=== PATIENT | male | born 1935 | race African-American/Black ===

== ENCOUNTER 2021-01-31 09:34 | Emergency (ER) | payer MEDICARE ==
[2021-01-31] MEDS ORDERED: traMADol HCl 50 MG TAB ONE (10:48)
[2021-01-31 10:55] LABS: #Eosinphils 0.2 thou/uL (0.0-0.7); #Lymphocytes 1.5 thou/uL (1.20-3.40); #Monocytes 0.4 thou/uL (0.11-0.59); #Neutrophils 4.2 thou/uL (1.40-6.50); %Basophils 0.1 % (0.0-1.0); %Eosinophils 3.4 % (0.0-10.0); %Lymphocytes 23.2 % (21.0-51.0); %Monocytes 6.2 % (0.0-10.0); %Neutrophils 67.1 % (42.0-75.0); Hemoglobin 13.4 g/dL (14.0-18.0); Mean Corpuscular HGB CONC 33.3 g/dL (32.0-36.0); Mean Corpuscular Volume 87.3 fL (78.0-98.0); Mean Platelet Volume 7.6 fL (7.4-10.4); Platelet Count 134 thou/uL (130-400); RBC Distribution Width 13.6 % (11.5-14.5); White Blood Cell (WBC) Count 6.3 thou/uL (4.8-10.8)
[2021-01-31 11:18] LABS: ALT (SGPT) 11 U/L (8-55); AST (SGOT) 17 U/L (5-34); Albumin 4.1 g/dL (3.4-4.8); Alkaline Phosphatase 82 U/L (40-110); Anion Gap 12 mmol/L (10-20); BUN (Urea Nitrogen) 23 mg/dL (8.4-25.7); Bilirubin, Total 0.8 mg/dL (0.2-1.2); Calc. Creatinine Clearance 0 mL/min (70-130); Calcium 9.9 mg/dL (7.8-10.44); Carbon Dioxide 24 mmol/L (23-31); Chloride 108 mmol/L (98-107); Globulin 3.6 g/dL (2.4-3.5); Glucose 135 mg/dL (83-110); Potassium 4.2 mmol/L (3.5-5.1); Protein, Total 7.7 g/dL (5.8-8.1); Sodium 140 mmol/L (136-145)
[2021-01-31 11:37] LABS: Bilirubin Negative (Negative); Blood, Urine Negative (Negative); Clarity Clear (Clear); Glucose, Urine (Dipstick) Normal (Negative); Ketone, Urine Negative (Negative); Leukocyte Negative Leu/uL (Negative); Nitrite Negative (Negative); Protein, Urine (Dipstick) 10 mg/dL (Neg-Trace); Specific Gravity, Urine 1.013 (1.002-1.036); Urobilinogen Normal mg/dL (Less than 2)
== END 2021-01-31 12:00 | disposition home or self-care (01) ==
LOC: ERS 09:34
DX: M62.830 Muscle spasm of back (principal); E11.9 Type 2 diabetes mellitus without complications; I10 Essential (primary) hypertension; E78.00 Pure hypercholesterolemia, unspecified
CPT/HCPCS: 36415; 74176; 80053; 81003; 85025

== ENCOUNTER 2021-06-13 03:10 | Emergency (ER) | payer MEDICARE ==
[2021-06-13 04:20] LABS: ALT (SGPT) 15 U/L (8-55); AST (SGOT) 30 U/L (5-34); Albumin 3.7 g/dL (3.4-4.8); Alkaline Phosphatase 118 U/L (40-110); Anion Gap 13 mmol/L (10-20); BUN (Urea Nitrogen) 45 mg/dL (8.4-25.7); Calc. Creatinine Clearance 0 mL/min (70-130); Calcium 8.9 mg/dL (7.8-10.44); Carbon Dioxide 22 mmol/L (23-31); Chloride 104 mmol/L (98-107); Globulin 3.3 g/dL (2.4-3.5); Glucose 100 mg/dL (83-110); Magnesium 2.1 mg/dL (1.6-2.6); Potassium 3.9 mmol/L (3.5-5.1); Sodium 135 mmol/L (136-145)
[2021-06-13 04:26] LABS: #Eosinphils 0.1 thou/uL (0.0-0.7); #Monocytes 0.5 thou/uL (0.11-0.59); #Neutrophils 4.4 thou/uL (1.40-6.50); %Basophils 0.6 % (0.0-1.0); %Eosinophils 1.8 % (0.0-10.0); %Lymphocytes 16.5 % (21.0-51.0); %Monocytes 7.8 % (0.0-10.0); %Neutrophils 73.3 % (42.0-75.0); Anisocytosis SLIGHT = 6-15 cells (100X) (0-5/hpf); Hemoglobin 11.4 g/dL (14.0-18.0); MDiff Complete? YES; Mean Corpuscular HGB CONC 33.3 g/dL (32.0-36.0); Mean Corpuscular Hemoglobin 28.5 pg (27.0-31.0); Mean Corpuscular Volume 85.3 fL (78.0-98.0); Mean Platelet Volume 10.7 fL (7.4-10.4); Platelet Count 52 thou/uL (130-400); Platelet Morphology Comment Appears Decreased; RBC Distribution Width 15.2 % (11.5-14.5); Red Blood Cell (RBC) Count 4.01 mill/uL (4.70-6.10)
[2021-06-13 04:41] LABS: CKMB 1.5 ng/mL (0-6.6)
[2021-06-13] MEDS ORDERED: cefTRIAXone\\ROCEPHIN 2 GM VIAL ONE (07:56)
[2021-06-13] MEDS ORDERED: Azithromycin 500 MG VIAL ONE (08:44)
[2021-06-13] MEDS ORDERED: Iopamidol 370 76% 100 ML VIAL ONE (09:00)
== END 2021-06-13 09:17 | disposition short-term general hospital (02) ==
LOC: ERS 03:10
DX: I11.0 Hypertensive heart disease with heart failure (principal); I50.9 Heart failure, unspecified; E11.9 Type 2 diabetes mellitus without complications; Z79.899 Other long term (current) drug therapy; Z79.84 Long term (current) use of oral hypoglycemic drugs; R09.02 Hypoxemia; R79.89 Other specified abnormal findings of blood chemistry
CPT/HCPCS: 36415; 71045; 71275; 80053; 82553; 83605; 83735; 83880; 84484; 85025; 85379; 87040; 93005; 93970; 96365; 96375; J0456; J0696; Q9967

== ENCOUNTER 2021-08-12 17:48 | Inpatient (IN) | payer MEDICARE ==
[2021-08-12 18:47] LABS: #Eosinphils 0.2 thou/uL (0.0-0.7); #Lymphocytes 1.3 thou/uL (1.20-3.40); #Monocytes 0.5 thou/uL (0.11-0.59); #Neutrophils 3.1 thou/uL (1.40-6.50); %Basophils 0.2 % (0.0-1.0); %Eosinophils 4.7 % (0.0-10.0); %Lymphocytes 25.6 % (21.0-51.0); %Monocytes 9.7 % (0.0-10.0); %Neutrophils 59.8 % (42.0-75.0); Hemoglobin 11.9 g/dL (14.0-18.0); Mean Corpuscular HGB CONC 33.2 g/dL (32.0-36.0); Mean Corpuscular Hemoglobin 29.4 pg (27.0-31.0); Mean Corpuscular Volume 88.3 fL (78.0-98.0); Platelet Count 51 thou/uL (130-400); RBC Distribution Width 17.3 % (11.5-14.5); Red Blood Cell (RBC) Count 4.06 mill/uL (4.70-6.10); White Blood Cell (WBC) Count 5.2 thou/uL (4.8-10.8)
[2021-08-12] MEDS ORDERED: Morphine 4 MG/ML VIAL ONE (19:02)
[2021-08-12] MEDS ORDERED: Furosemide 40 MG/4 ML VIAL ONE ×2 (19:02→22:46)
[2021-08-12 19:04] LABS: ALT (SGPT) 14 U/L (8-55); AST (SGOT) 28 U/L (5-34); Albumin 3.2 g/dL (3.4-4.8); Alkaline Phosphatase 172 U/L (40-110); Anion Gap 15 mmol/L (10-20); BUN (Urea Nitrogen) 16 mg/dL (8.4-25.7); Bilirubin, Total 1.5 mg/dL (0.2-1.2); CK (CPK) 61 U/L (30-200); Calc. Creatinine Clearance 0 mL/min (70-130); Carbon Dioxide 25 mmol/L (23-31); Chloride 104 mmol/L (98-107); Globulin 3.6 g/dL (2.4-3.5); Glucose 131 mg/dL (83-110); Lipase 30 U/L (8-78); Potassium 3.6 mmol/L (3.5-5.1); Protein, Total 6.8 g/dL (5.8-8.1); Sodium 140 mmol/L (136-145)
[2021-08-12 19:25] LABS: CKMB 1.5 ng/mL (0-6.6)
[2021-08-12] MEDS ORDERED: Aspirin Chewable 81 MG TAB ONE (19:33)
[2021-08-12] MEDS ORDERED: Bisacodyl 10 MG SUPP PR PRN (21:14)
[2021-08-12] MEDS ORDERED: Acetaminophen 325 MG TAB PO PRN (21:14)
[2021-08-12] MEDS ORDERED: HYDROcodone/Acetaminophen 5/325 mg Tablet PO PRN (21:14)
[2021-08-12] MEDS ORDERED: Zolpidem Tartrate 5 MG TAB PO PRN (21:14)
[2021-08-12] MEDS ORDERED: Morphine 2 MG/ML VIAL SLOW IVP PRN (21:18)
[2021-08-12] MEDS ORDERED: hydrALAZINE 20 MG/ML VIAL SLOW IVP PRN (21:18)
[2021-08-12 22:06] LABS: Bilirubin Negative (Negative); Blood, Urine 1+ (Negative); Clarity Clear (Clear); Glucose, Urine (Dipstick) Normal (Negative); Ketone, Urine Negative (Negative); Leukocyte 75 Leu/uL (Negative); Nitrite Negative (Negative); Protein, Urine (Dipstick) Negative (Neg-Trace); Specific Gravity, Urine 1.008 (1.002-1.036); Squamous Epithelial 0-3 HPF (0-3); Urobilinogen Normal mg/dL (Less than 2)
[2021-08-12 22:08] LABS: Bacteria/HPF Rare-Few HPF (None Seen); Yeast-Budding 3+ HPF (None Seen)
[2021-08-12 22:14] LABS: Troponin I 0.045 ng/mL (< 0.028)
[2021-08-12] MEDS: Furosemide 40 MG/4 ML VIAL SLOW IVP SCH (22:48)
[2021-08-12 22:50] VITALS: BMI 31.8
[2021-08-12 23:47] LABS: Creatinine, Urine 37.77 mg/dL (63-166)
[2021-08-13 01:13] LABS: Troponin I 0.055 ng/mL (< 0.028)
[2021-08-13] MEDS ORDERED: HYDROcodone/Acetaminophen 5/325 mg Tablet ONE (03:04)
[2021-08-13] MEDS ORDERED: Morphine 2 MG/ML VIAL ONE ×2 (03:07→03:10)
[2021-08-13 05:28] LABS: #Eosinphils 0.3 thou/uL (0.0-0.7); #Lymphocytes 1.6 thou/uL (1.20-3.40); #Monocytes 0.5 thou/uL (0.11-0.59); #Neutrophils 2.5 thou/uL (1.40-6.50); %Basophils 0.4 % (0.0-1.0); %Eosinophils 6.5 % (0.0-10.0); %Lymphocytes 31.8 % (21.0-51.0); %Neutrophils 50.3 % (42.0-75.0); Hemoglobin 10.9 g/dL (14.0-18.0); Mean Corpuscular HGB CONC 31.5 g/dL (32.0-36.0); Mean Corpuscular Hemoglobin 27.9 pg (27.0-31.0); Mean Corpuscular Volume 88.5 fL (78.0-98.0); Mean Platelet Volume 8.6 fL (7.4-10.4); Platelet Count 30 thou/uL (130-400); RBC Distribution Width 16.9 % (11.5-14.5); Red Blood Cell (RBC) Count 3.91 mill/uL (4.70-6.10); White Blood Cell (WBC) Count 4.9 thou/uL (4.8-10.8)
[2021-08-13 05:44] LABS: ALT (SGPT) 13 U/L (8-55); AST (SGOT) 25 U/L (5-34); Albumin 2.9 g/dL (3.4-4.8); Alkaline Phosphatase 143 U/L (40-110); Anion Gap 15 mmol/L (10-20); BUN (Urea Nitrogen) 16 mg/dL (8.4-25.7); Bilirubin, Total 1.7 mg/dL (0.2-1.2); Calc. Creatinine Clearance 57 mL/min (70-130); Calcium 8.8 mg/dL (7.8-10.44); Carbon Dioxide 25 mmol/L (23-31); Chloride 105 mmol/L (98-107); Globulin 3.2 g/dL (2.4-3.5); Glucose 98 mg/dL (83-110); Potassium 3.4 mmol/L (3.5-5.1); Protein, Total 6.1 g/dL (5.8-8.1); Sodium 142 mmol/L (136-145)
[2021-08-13 05:47] LABS: Troponin I 0.048 ng/mL (< 0.028)
[2021-08-13] MEDS ORDERED: Furosemide 40 MG/4 ML VIAL ONE (06:01)
[2021-08-13] MEDS: Furosemide 40 MG/4 ML VIAL SLOW IVP SCH ×3 (06:10→21:12)
[2021-08-13] MEDS: Carvedilol 3.125 MG TAB PO SCH ×2 (08:59→17:09)
[2021-08-13] MEDS ORDERED: Spironolactone 100 MG TAB PO SCH (09:00)
[2021-08-13] MEDS ORDERED: Potassium Chloride 20 MEQ TAB PO SCH (09:00)
[2021-08-13 09:30] LABS: Magnesium 1.9 mg/dL (1.6-2.6)
[2021-08-13] MEDS ORDERED: Potassium Chloride 20 MEQ TAB ONE (09:52)
[2021-08-13] MEDS ORDERED: Famotidine 20 MG TAB ONE (09:52)
[2021-08-13] MEDS ORDERED: Clopidogrel Bisulfate 75 MG TAB ONE (09:52)
[2021-08-13] MEDS: Famotidine 20 MG TAB PO SCH (09:57)
[2021-08-13] MEDS: Amiodarone 200 MG TAB PO SCH (09:57)
[2021-08-13] MEDS: Clopidogrel Bisulfate 75 MG TAB PO SCH (09:57)
[2021-08-13] MEDS: Midodrine HCl 5 MG TAB PO SCH ×3 (09:58→21:12)
[2021-08-13] MEDS: Ferrous Sulfate 325 MG TAB PO SCH (09:58)
[2021-08-13] MEDS: Miconazole 2% Cream 30 GM TUBE TOP SCH ×3 (16:39→21:12)
[2021-08-13 17:00] LABS: Troponin I 0.048 ng/mL (< 0.028)
[2021-08-13] MEDS: Rosuvastatin 10 MG TAB PO SCH (21:11)
[2021-08-13] MEDS: Apixaban 2.5 MG TAB PO SCH (21:12)
[2021-08-13] MEDS ORDERED: Miconazole 2% Vaginal Cream 45 GM TUBE TOP SCH (21:45)
[2021-08-14 05:17] LABS: #Eosinphils 0.2 thou/uL (0.0-0.7); #Lymphocytes 1.6 thou/uL (1.20-3.40); #Monocytes 0.7 thou/uL (0.11-0.59); #Neutrophils 3.8 thou/uL (1.40-6.50); %Basophils 0.2 % (0.0-1.0); %Eosinophils 2.8 % (0.0-10.0); %Lymphocytes 25.2 % (21.0-51.0); %Monocytes 10.4 % (0.0-10.0); %Neutrophils 61.4 % (42.0-75.0); Hemoglobin 10.9 g/dL (14.0-18.0); Mean Corpuscular HGB CONC 31.8 g/dL (32.0-36.0); Mean Platelet Volume 16.8 fL (7.4-10.4); Platelet Count 24 thou/uL (130-400); RBC Distribution Width 16.7 % (11.5-14.5); Red Blood Cell (RBC) Count 3.91 mill/uL (4.70-6.10); White Blood Cell (WBC) Count 6.2 thou/uL (4.8-10.8)
[2021-08-14 05:39] LABS: ALT (SGPT) 11 U/L (8-55); AST (SGOT) 20 U/L (5-34); Albumin 2.8 g/dL (3.4-4.8); Alkaline Phosphatase 137 U/L (40-110); Anion Gap 12 mmol/L (10-20); BUN (Urea Nitrogen) 16 mg/dL (8.4-25.7); Bilirubin, Total 1.7 mg/dL (0.2-1.2); Calc. Creatinine Clearance 55 mL/min (70-130); Carbon Dioxide 27 mmol/L (23-31); Chloride 106 mmol/L (98-107); Globulin 3.2 g/dL (2.4-3.5); Glucose 103 mg/dL (83-110); Potassium 3.6 mmol/L (3.5-5.1); Sodium 141 mmol/L (136-145)
[2021-08-14] MEDS: Furosemide 40 MG/4 ML VIAL SLOW IVP SCH ×3 (05:45→21:42)
[2021-08-14] MEDS ORDERED: Potassium Chloride 20 MEQ TAB PO SCH (06:45)
[2021-08-14] MEDS: Apixaban 2.5 MG TAB PO SCH ×2 (08:34→08:44)
[2021-08-14] MEDS: Carvedilol 3.125 MG TAB PO SCH ×2 (08:34→17:29)
[2021-08-14] MEDS: Midodrine HCl 5 MG TAB PO SCH ×3 (08:34→21:43)
[2021-08-14] MEDS: Famotidine 20 MG TAB PO SCH (08:34)
[2021-08-14] MEDS: Ferrous Sulfate 325 MG TAB PO SCH (08:34)
[2021-08-14] MEDS: Spironolactone 100 MG TAB PO SCH (08:34)
[2021-08-14] MEDS: Clopidogrel Bisulfate 75 MG TAB PO SCH ×2 (08:35→08:44)
[2021-08-14] MEDS: Amiodarone 200 MG TAB PO SCH (08:35)
[2021-08-14] MEDS: Miconazole 2% Vaginal Cream 45 GM TUBE TOP SCH ×2 (11:12→21:44)
[2021-08-14 12:11] LABS: Iron 26 ug/dL (65-175); Iron Binding Capacity, Total 241 mcg/dL (261-462)
[2021-08-14] MEDS: Rosuvastatin 10 MG TAB PO SCH (21:42)
[2021-08-15] MEDS ORDERED: Oxymetazoline HCl 0.05% (30 ML BOT) NS SCH (04:00)
[2021-08-15] MEDS: Furosemide 40 MG/4 ML VIAL SLOW IVP SCH ×3 (06:12→20:40)
[2021-08-15 06:17] LABS: #Eosinphils 0.1 thou/uL (0.0-0.7); #Lymphocytes 1.6 thou/uL (1.20-3.40); #Monocytes 0.5 thou/uL (0.11-0.59); #Neutrophils 3.2 thou/uL (1.40-6.50); %Basophils 0.1 % (0.0-1.0); %Eosinophils 2.6 % (0.0-10.0); %Lymphocytes 29.9 % (21.0-51.0); %Monocytes 9.4 % (0.0-10.0); Mean Corpuscular HGB CONC 31.1 g/dL (32.0-36.0); Mean Corpuscular Hemoglobin 27.4 pg (27.0-31.0); Platelet Count 24 thou/uL (130-400); RBC Distribution Width 16.7 % (11.5-14.5); Red Blood Cell (RBC) Count 4.01 mill/uL (4.70-6.10); White Blood Cell (WBC) Count 5.5 thou/uL (4.8-10.8)
[2021-08-15 06:43] LABS: ALT (SGPT) 8 U/L (8-55); AST (SGOT) 19 U/L (5-34); Albumin 2.8 g/dL (3.4-4.8); Alkaline Phosphatase 139 U/L (40-110); Anion Gap 13 mmol/L (10-20); BUN (Urea Nitrogen) 18 mg/dL (8.4-25.7); Bilirubin, Total 1.6 mg/dL (0.2-1.2); Calc. Creatinine Clearance 52 mL/min (70-130); Calcium 8.9 mg/dL (7.8-10.44); Carbon Dioxide 29 mmol/L (23-31); Chloride 103 mmol/L (98-107); Estimated GFR 46; Globulin 3.3 g/dL (2.4-3.5); Glucose 119 mg/dL (83-110); Potassium 3.7 mmol/L (3.5-5.1); Protein, Total 6.1 g/dL (5.8-8.1); Sodium 141 mmol/L (136-145)
[2021-08-15] MEDS: Clopidogrel Bisulfate 75 MG TAB PO SCH (07:53)
[2021-08-15] MEDS: Iron, Sodium Ferric Gluconate 250 MG in Sodium Chloride 0.9% 250 ML 250 ML IVPB SCH (09:59)
[2021-08-15] MEDS: Amiodarone 200 MG TAB PO SCH (10:39)
[2021-08-15] MEDS: Carvedilol 3.125 MG TAB PO SCH ×2 (10:39→16:42)
[2021-08-15] MEDS: Spironolactone 100 MG TAB PO SCH (10:39)
[2021-08-15] MEDS: Famotidine 20 MG TAB PO SCH (10:39)
[2021-08-15] MEDS: Ferrous Sulfate 325 MG TAB PO SCH (10:39)
[2021-08-15] MEDS: Miconazole 2% Vaginal Cream 45 GM TUBE TOP SCH ×2 (10:40→20:40)
[2021-08-15] MEDS: Midodrine HCl 5 MG TAB PO SCH ×3 (10:40→20:39)
[2021-08-15 11:23] LABS: INR-International Normal Ratio 1.3; Prothrombin Time 16.5 sec (12.0-14.7)
[2021-08-15] MEDS: Rosuvastatin 10 MG TAB PO SCH (20:39)
[2021-08-16] MEDS: Oxymetazoline HCl 0.05% (30 ML BOT) NS SCH ×2 (04:21→08:29)
[2021-08-16] MEDS: Furosemide 40 MG/4 ML VIAL SLOW IVP SCH ×2 (05:36→14:10)
[2021-08-16 08:14] LABS: Mean Corpuscular HGB CONC 31.9 g/dL (32.0-36.0); Mean Corpuscular Hemoglobin 27.9 pg (27.0-31.0); Mean Corpuscular Volume 87.4 fL (78.0-98.0); Mean Platelet Volume 8.8 fL (7.4-10.4); Platelet Count 44 thou/uL (130-400); RBC Distribution Width 16.7 % (11.5-14.5); Red Blood Cell (RBC) Count 3.96 mill/uL (4.70-6.10); White Blood Cell (WBC) Count 6.1 thou/uL (4.8-10.8)
[2021-08-16 08:16] LABS: Albumin 2.9 g/dL (3.4-4.8); Anion Gap 17 mmol/L (10-20); BUN (Urea Nitrogen) 18 mg/dL (8.4-25.7); BUN/Creatinine Ratio 12.86; Calc. Creatinine Clearance 54 mL/min (70-130); Calcium 8.9 mg/dL (7.8-10.44); Carbon Dioxide 27 mmol/L (23-31); Chloride 102 mmol/L (98-107); Estimated GFR 49; Glucose 124 mg/dL (83-110); Phosphorus 2.9 mg/dL (2.3-4.7); Potassium 3.7 mmol/L (3.5-5.1); Sodium 142 mmol/L (136-145)
[2021-08-16] MEDS: Amiodarone 200 MG TAB PO SCH (08:33)
[2021-08-16] MEDS: Famotidine 20 MG TAB PO SCH (08:34)
[2021-08-16] MEDS: Carvedilol 3.125 MG TAB PO SCH ×2 (08:34→17:21)
[2021-08-16] MEDS: Clopidogrel Bisulfate 75 MG TAB PO SCH (08:34)
[2021-08-16] MEDS: Ferrous Sulfate 325 MG TAB PO SCH (08:34)
[2021-08-16] MEDS: Spironolactone 100 MG TAB PO SCH (08:35)
[2021-08-16] MEDS: Midodrine HCl 5 MG TAB PO SCH ×3 (08:35→21:25)
[2021-08-16] MEDS: Iron, Sodium Ferric Gluconate 250 MG in Sodium Chloride 0.9% 250 ML 250 ML IVPB SCH (08:36)
[2021-08-16] MEDS: Miconazole 2% Vaginal Cream 45 GM TUBE TOP SCH ×2 (09:58→21:26)
[2021-08-16] MEDS: Albumin 25% 25 GM/100 ML BOT IVPB SCH ×2 (11:13→17:21)
[2021-08-16] MEDS: Rosuvastatin 10 MG TAB PO SCH (21:25)
[2021-08-17 05:39] LABS: Hemoglobin 10.2 g/dL (14.0-18.0); Mean Corpuscular HGB CONC 32.3 g/dL (32.0-36.0); Mean Corpuscular Hemoglobin 28.4 pg (27.0-31.0); Mean Corpuscular Volume 87.9 fL (78.0-98.0); Platelet Count 34 thou/uL (130-400); RBC Distribution Width 16.7 % (11.5-14.5); Red Blood Cell (RBC) Count 3.59 mill/uL (4.70-6.10); White Blood Cell (WBC) Count 5.4 thou/uL (4.8-10.8)
[2021-08-17 05:46] LABS: Albumin 3.1 g/dL (3.4-4.8); Anion Gap 14 mmol/L (10-20); BUN (Urea Nitrogen) 18 mg/dL (8.4-25.7); Calc. Creatinine Clearance 53 mL/min (70-130); Calcium 8.7 mg/dL (7.8-10.44); Carbon Dioxide 29 mmol/L (23-31); Chloride 101 mmol/L (98-107); Estimated GFR 47; Glucose 133 mg/dL (83-110); Potassium 3.3 mmol/L (3.5-5.1); Sodium 141 mmol/L (136-145)
[2021-08-17] MEDS: Oxymetazoline HCl 0.05% (30 ML BOT) NS SCH ×3 (06:51→20:27)
[2021-08-17] MEDS: Furosemide 40 MG/4 ML VIAL SLOW IVP SCH (07:37)
[2021-08-17] MEDS ORDERED: Potassium Chloride 20 MEQ TAB PO SCH (08:15)
[2021-08-17] MEDS ORDERED: Furosemide 20 MG TAB PO SCH (09:00)
[2021-08-17] MEDS: Ferrous Sulfate 325 MG TAB PO SCH (09:22)
[2021-08-17] MEDS: Spironolactone 100 MG TAB PO SCH (09:23)
[2021-08-17] MEDS: Amiodarone 200 MG TAB PO SCH (09:23)
[2021-08-17] MEDS: Carvedilol 3.125 MG TAB PO SCH ×2 (09:23→16:14)
[2021-08-17] MEDS: Famotidine 20 MG TAB PO SCH (09:23)
[2021-08-17] MEDS: Midodrine HCl 5 MG TAB PO SCH ×3 (09:23→20:26)
[2021-08-17] MEDS: Miconazole 2% Vaginal Cream 45 GM TUBE TOP SCH ×2 (09:24→20:56)
[2021-08-17] MEDS ORDERED: Bisacodyl 10 MG SUPP PR PRN (09:54)
[2021-08-17] MEDS: Clopidogrel Bisulfate 75 MG TAB PO SCH ×2 (10:02→16:15)
[2021-08-17 10:15] LABS: Magnesium 1.7 mg/dL (1.6-2.6)
[2021-08-17] MEDS: Iron, Sodium Ferric Gluconate 250 MG in Sodium Chloride 0.9% 250 ML 250 ML IVPB SCH (10:20)
[2021-08-17 14:16] LABS: Heparin-Induced Ab (HITA) 0.173 OD (0.000-0.400)
[2021-08-17] MEDS ORDERED: Torsemide 20 MG TAB PO SCH (16:00)
[2021-08-17] MEDS: Rosuvastatin 10 MG TAB PO SCH (20:26)
[2021-08-17] MEDS: Docusate 100 MG CAP PO SCH (20:27)
[2021-08-18 05:47] LABS: Albumin 3.2 g/dL (3.4-4.8); Anion Gap 14 mmol/L (10-20); BUN (Urea Nitrogen) 19 mg/dL (8.4-25.7); BUN/Creatinine Ratio 12.58; Calc. Creatinine Clearance 50 mL/min (70-130); Calcium 9.1 mg/dL (7.8-10.44); Carbon Dioxide 28 mmol/L (23-31); Chloride 102 mmol/L (98-107); Estimated GFR 44; Glucose 135 mg/dL (83-110); Phosphorus 2.8 mg/dL (2.3-4.7); Potassium 3.7 mmol/L (3.5-5.1); Sodium 140 mmol/L (136-145)
[2021-08-18 06:00] LABS: #Eosinphils 0.2 thou/uL (0.0-0.7); #Lymphocytes 1.3 thou/uL (1.20-3.40); #Monocytes 0.6 thou/uL (0.11-0.59); #Neutrophils 3.3 thou/uL (1.40-6.50); %Basophils 0.6 % (0.0-1.0); %Eosinophils 3.8 % (0.0-10.0); %Lymphocytes 23.6 % (21.0-51.0); %Monocytes 10.4 % (0.0-10.0); %Neutrophils 61.7 % (42.0-75.0); Hemoglobin 10.6 g/dL (14.0-18.0); MDiff Complete? YES; Mean Corpuscular HGB CONC 32.4 g/dL (32.0-36.0); Mean Corpuscular Hemoglobin 28.4 pg (27.0-31.0); Mean Corpuscular Volume 87.5 fL (78.0-98.0); Mean Platelet Volume 8.3 fL (7.4-10.4); Platelet Count 34 thou/uL (130-400); Platelet Morphology Comment Appears Decreased; RBC Distribution Width 16.8 % (11.5-14.5); Red Blood Cell (RBC) Count 3.72 mill/uL (4.70-6.10); Target Cells SLIGHT = 2-5 cells (100X) (0-1/hpf); White Blood Cell (WBC) Count 5.4 thou/uL (4.8-10.8)
[2021-08-18] MEDS ORDERED: Torsemide 20 MG TAB PO SCH (09:00)
[2021-08-18] MEDS ORDERED: Polyethylene Glycol 3350 17 GM Packet PO SCH (09:00)
[2021-08-18] MEDS: Miconazole 2% Vaginal Cream 45 GM TUBE TOP SCH (09:03)
[2021-08-18] MEDS: Spironolactone 100 MG TAB PO SCH (09:04)
[2021-08-18] MEDS: Carvedilol 3.125 MG TAB PO SCH ×2 (09:04→16:43)
[2021-08-18] MEDS: Clopidogrel Bisulfate 75 MG TAB PO SCH (09:04)
[2021-08-18] MEDS: Midodrine HCl 5 MG TAB PO SCH ×2 (09:04→14:51)
[2021-08-18] MEDS: Amiodarone 200 MG TAB PO SCH (09:04)
[2021-08-18] MEDS: Ferrous Sulfate 325 MG TAB PO SCH (09:04)
[2021-08-18] MEDS: Famotidine 20 MG TAB PO SCH (09:05)
[2021-08-18] MEDS: Docusate 100 MG CAP PO SCH (09:05)
[2021-08-18] MEDS ORDERED: Metolazone 2.5 MG TAB PO SCH (10:00)
[2021-08-18] MEDS ORDERED: Iron, Sodium Ferric Gluconate 250 MG in Sodium Chloride 0.9% 250 ML 250 ML IVPB SCH (13:00)
[2021-08-18] MEDS: Iron, Sodium Ferric Gluconate 250 MG in Sodium Chloride 0.9% 250 ML 250 ML IVPB SCH (14:19)
[2021-08-18 16:36] VITALS: BP 108/75; TEMP 98
[2021-08-19] MEDS ORDERED: Metolazone 2.5 MG TAB PO SCH (09:00)
[2021-08-20] MEDS ORDERED: Metolazone 2.5 MG TAB PO SCH (09:00)
== END 2021-08-18 19:35 | DRG 291 ==
LOC: ERS 17:48 → ERHOLD 19:43 → NEURO 08-13 15:16
PROVIDERS: ADMIT Internal Medicine; ATTEND Internal Medicine
DX: I13.0 Hypertensive heart and chronic kidney disease with heart failure and stage 1 through stage 4 chronic kidney disease, or unspecified chronic kidney disease (principal); I50.43 Acute on chronic combined systolic (congestive) and diastolic (congestive) heart failure; N17.9 Acute kidney failure, unspecified; D68.32 Hemorrhagic disorder due to extrinsic circulating anticoagulants; D69.3 Immune thrombocytopenic purpura; Z66 Do not resuscitate; Z20.822 Contact with and (suspected) exposure to COVID-19; E11.22 Type 2 diabetes mellitus with diabetic chronic kidney disease; N40.0 Benign prostatic hyperplasia without lower urinary tract symptoms; C61 Malignant neoplasm of prostate; R33.9 Retention of urine, unspecified; I25.5 Ischemic cardiomyopathy; E87.6 Hypokalemia; I25.10 Atherosclerotic heart disease of native coronary artery without angina pectoris; D63.1 Anemia in chronic kidney disease; R04.0 Epistaxis; I48.0 Paroxysmal atrial fibrillation; N18.30 Chronic kidney disease, stage 3 unspecified; T45.515A Adverse effect of anticoagulants, initial encounter; E11.65 Type 2 diabetes mellitus with hyperglycemia; Z95.810 Presence of automatic (implantable) cardiac defibrillator; Z79.899 Other long term (current) drug therapy; Z79.01 Long term (current) use of anticoagulants; Z95.5 Presence of coronary angioplasty implant and graft; Z87.891 Personal history of nicotine dependence; Z79.84 Long term (current) use of oral hypoglycemic drugs
CPT/HCPCS: 36415; 36430; 51702; 71045; 74176; 76705; 80053; 80069; 81003; 81015; 82550; 82553; 82570; 82728; 83540; 83550; 83690; 83735; 83880; 84300; 84443; 84484; 85025; 85027; 85060; 85610; 85730; 86850; 86900; 86901; 93005; 96374; 96375; J1940; J2270; J2916; J7050; P9035; P9047; U0003; U0005

== ENCOUNTER 2021-08-19 19:08 | Emergency (ER) | payer MEDICARE ==
[~2021-08-19 19:08] MED LIST: ISOVUE-370 76%-LOCM 1 ML ONE
[2021-08-19] MEDS ORDERED: Fentanyl 100 MCG/2 ML VIAL ONE (19:51)
[2021-08-19 20:10] LABS: #Eosinphils 0.2 thou/uL (0.0-0.7); #Lymphocytes 1.5 thou/uL (1.20-3.40); #Monocytes 0.7 thou/uL (0.11-0.59); #Neutrophils 3.8 thou/uL (1.40-6.50); %Eosinophils 3.3 % (0.0-10.0); %Lymphocytes 23.7 % (21.0-51.0); %Monocytes 12.1 % (0.0-10.0); %Neutrophils 60.9 % (42.0-75.0); Hemoglobin 10.3 g/dL (14.0-18.0); Mean Corpuscular HGB CONC 32.2 g/dL (32.0-36.0); Mean Corpuscular Hemoglobin 28.6 pg (27.0-31.0); Mean Corpuscular Volume 88.8 fL (78.0-98.0); Mean Platelet Volume 16.1 fL (7.4-10.4); Platelet Count 40 thou/uL (130-400); RBC Distribution Width 17.6 % (11.5-14.5); Red Blood Cell (RBC) Count 3.62 mill/uL (4.70-6.10); White Blood Cell (WBC) Count 6.2 thou/uL (4.8-10.8)
[2021-08-19 20:26] LABS: ALT (SGPT) 9 U/L (8-55); AST (SGOT) 22 U/L (5-34); Albumin 3.4 g/dL (3.4-4.8); Alkaline Phosphatase 169 U/L (40-110); Anion Gap 16 mmol/L (10-20); BUN (Urea Nitrogen) 22 mg/dL (8.4-25.7); Bilirubin, Total 1.7 mg/dL (0.2-1.2); Calc. Creatinine Clearance 0 mL/min (70-130); Calcium 8.9 mg/dL (7.8-10.44); Carbon Dioxide 30 mmol/L (23-31); Chloride 100 mmol/L (98-107); Estimated GFR 36; Globulin 3.1 g/dL (2.4-3.5); Glucose 157 mg/dL (83-110); Potassium 3.9 mmol/L (3.5-5.1); Protein, Total 6.5 g/dL (5.8-8.1); Sodium 142 mmol/L (136-145)
[2021-08-19 20:48] LABS: CKMB 0.8 ng/mL (0-6.6)
[2021-08-20] MEDS ORDERED: Aspirin Chewable 81 MG TAB ONE (01:26)
== END 2021-08-20 01:45 | disposition short-term general hospital (02) ==
LOC: ERS 19:08
DX: I70.202 Unspecified atherosclerosis of native arteries of extremities, left leg (principal); I11.0 Hypertensive heart disease with heart failure; I50.9 Heart failure, unspecified; I21.4 Non-ST elevation (NSTEMI) myocardial infarction; E11.9 Type 2 diabetes mellitus without complications; Z79.899 Other long term (current) drug therapy; Z79.01 Long term (current) use of anticoagulants
CPT/HCPCS: 71045; 75635; 80053; 82553; 83880; 84484; 85025; 93005; 94760; 96374; J3010; Q9966

== ENCOUNTER 2021-09-07 06:17 | Emergency (ER) | payer MEDICARE ==
[2021-09-07] MEDS ORDERED: Acetaminophen 500 MG TAB ONE (06:45)
== END 2021-09-07 08:05 | disposition home or self-care (01) ==
LOC: ERS 06:17
DX: M25.552 Pain in left hip (principal); E11.9 Type 2 diabetes mellitus without complications; I11.0 Hypertensive heart disease with heart failure; I50.9 Heart failure, unspecified; I25.2 Old myocardial infarction; Z79.899 Other long term (current) drug therapy; Z79.01 Long term (current) use of anticoagulants
CPT/HCPCS: 72170

== ENCOUNTER 2021-09-21 01:41 | Emergency (ER) | payer MEDICARE ==
[2021-09-21] MEDS ORDERED: Oxymetazoline HCl 0.05% (30 ML BOT) ONE (01:55)
== END 2021-09-21 02:51 | disposition home or self-care (01) ==
LOC: ERS 01:41
DX: R04.0 Epistaxis (principal); E11.9 Type 2 diabetes mellitus without complications; I11.0 Hypertensive heart disease with heart failure; I50.9 Heart failure, unspecified; Z79.01 Long term (current) use of anticoagulants; Z79.899 Other long term (current) drug therapy
CPT/HCPCS: 99283

== ENCOUNTER 2022-02-20 12:01 | Emergency (ER) | payer MEDICARE, SELFPAY ==
[2022-02-20 12:57] LABS: #Eosinphils 0.2 thou/uL (0.0-0.7); #Lymphocytes 1.5 thou/uL (1.20-3.40); #Monocytes 0.4 thou/uL (0.11-0.59); #Neutrophils 2.6 thou/uL (1.40-6.50); %Basophils 0.4 % (0.0-1.0); %Eosinophils 3.3 % (0.0-10.0); %Lymphocytes 31.7 % (21.0-51.0); %Monocytes 8.6 % (0.0-10.0); Hemoglobin 10.6 g/dL (14.0-18.0); Mean Corpuscular HGB CONC 34.2 g/dL (32.0-36.0); Mean Corpuscular Hemoglobin 30.7 pg (27.0-31.0); Mean Corpuscular Volume 89.7 fl (78.0-98.0); Mean Platelet Volume 8.1 fL (7.4-10.4); Platelet Count 113 10x3/uL (130-400); RBC Distribution Width 13.8 % (11.5-14.5); Red Blood Cell (RBC) Count 3.45 mill/uL (4.70-6.10); White Blood Cell (WBC) Count 4.7 10x3/uL (4.8-10.8)
[2022-02-20 13:11] LABS: ALT (SGPT) 13 U/L (8-55); AST (SGOT) 26 U/L (5-34); Alkaline Phosphatase 121 U/L (40-110); Anion Gap 11 mmol/L (10-20); BUN (Urea Nitrogen) 39 mg/dL (8.4-25.7); CK (CPK) 56 U/L (30-200); Calc. Creatinine Clearance 0 mL/min (70-130); Carbon Dioxide 23 mmol/L (23-31); Chloride 107 mmol/L (98-107); Estimated GFR 26; Globulin 2.8 g/dL (2.4-3.5); Glucose 73 mg/dL (83-110); Protein, Total 6.8 g/dL (5.8-8.1)
[2022-02-20 13:23] LABS: Sodium 136 mmol/L (136-145)
[2022-02-20 13:33] LABS: CKMB 1.3 ng/mL (0-6.6)
== END 2022-02-20 13:36 | disposition home or self-care (01) ==
LOC: ERS 12:01
DX: R25.1 Tremor, unspecified (principal); E11.9 Type 2 diabetes mellitus without complications; I11.0 Hypertensive heart disease with heart failure; I50.9 Heart failure, unspecified; D72.829 Elevated white blood cell count, unspecified
CPT/HCPCS: 36415; 70450; 80053; 82140; 82550; 82553; 84484; 85025; 93005

== ENCOUNTER 2022-03-26 10:19 | Inpatient (IN) | payer MEDICARE, OTHER ==
[2022-03-26 11:32] LABS: #Eosinphils 0.1 thou/uL (0.0-0.7); #Lymphocytes 1.5 thou/uL (1.20-3.40); #Monocytes 0.4 thou/uL (0.11-0.59); #Neutrophils 3.9 thou/uL (1.40-6.50); %Basophils 0.4 % (0.0-1.0); %Eosinophils 1.7 % (0.0-10.0); %Lymphocytes 24.8 % (21.0-51.0); %Monocytes 6.6 % (0.0-10.0); %Neutrophils 66.5 % (42.0-75.0); Hemoglobin 10.4 g/dL (14.0-18.0); Mean Corpuscular HGB CONC 33.3 g/dL (32.0-36.0); Mean Corpuscular Hemoglobin 30.1 pg (27.0-31.0); Mean Corpuscular Volume 90.5 fl (78.0-98.0); Mean Platelet Volume 8.9 fL (7.4-10.4); Platelet Count 125 10x3/uL (130-400); Red Blood Cell (RBC) Count 3.45 mill/uL (4.70-6.10); White Blood Cell (WBC) Count 5.9 10x3/uL (4.8-10.8)
[2022-03-26 11:51] LABS: ALT (SGPT) 25 U/L (8-55); AST (SGOT) 32 U/L (5-34); Alkaline Phosphatase 119 U/L (40-110); Anion Gap 9 mmol/L (10-20); BUN (Urea Nitrogen) 36 mg/dL (8.4-25.7); Bilirubin, Total 0.8 mg/dL (0.2-1.2); Calc. Creatinine Clearance 0 mL/min (70-130); Calcium 9.7 mg/dL (7.8-10.44); Carbon Dioxide 25 mmol/L (23-31); Chloride 106 mmol/L (98-107); Estimated GFR 28; Globulin 3.4 g/dL (2.4-3.5); Glucose 119 mg/dL (83-110); Lipase 21 U/L (8-78); Potassium 5.5 mmol/L (3.5-5.1); Protein, Total 7.4 g/dL (5.8-8.1); Sodium 134 mmol/L (136-145)
[2022-03-26 14:04] LABS: Bilirubin Negative (Negative); Blood, Urine Negative (Negative); Clarity Clear (Clear); Glucose, Urine (Dipstick) Normal (Negative); Ketone, Urine Negative (Negative); Leukocyte Negative Leu/uL (Negative); Nitrite Negative (Negative); Protein, Urine (Dipstick) Negative (Neg-Trace); Urobilinogen Normal mg/dL (Less than 2)
[2022-03-26 18:39] VITALS: BMI 24.8
[2022-03-26] MEDS ORDERED: Senokot S 8.6-50 MG TAB PO PRN (20:46)
[2022-03-26] MEDS ORDERED: Dextrose 5% in Water 1,000 ML IV PRN (20:56)
[2022-03-26] MEDS ORDERED: HumaLOG 300 UNITS/3 ML VIAL SC PRN ×2 (20:56)
[2022-03-26] MEDS ORDERED: Dextrose 50% Abboject 50 ML SYRINGE SLOW IVP PRN (20:56)
[2022-03-26] MEDS ORDERED: Tamsulosin HCl 0.4 MG CAP PO SCH (21:00)
[2022-03-26] MEDS ORDERED: Sodium Chloride 0.9% 1,000 ML IV SCH (21:00)
[2022-03-26] MEDS: Apixaban 2.5 MG TAB PO SCH (21:26)
[2022-03-26 21:50] LABS: BUN (Urea Nitrogen) 30 mg/dL (8.4-25.7); Calc. Creatinine Clearance 29 mL/min (70-130); Calcium 9.5 mg/dL (7.8-10.44); Carbon Dioxide 20 mmol/L (23-31); Estimated GFR 31; Glucose 113 mg/dL (83-110)
[2022-03-26 22:17] LABS: Chloride 109 mmol/L (98-107); Potassium 5.3 mmol/L (3.5-5.1); Sodium 135 mmol/L (136-145)
[2022-03-26 22:20] LABS: Anion Gap 12 mmol/L (10-20)
[2022-03-27 07:22] LABS: #Eosinphils 0.1 thou/uL (0.0-0.7); #Lymphocytes 1.4 thou/uL (1.20-3.40); #Monocytes 0.6 thou/uL (0.11-0.59); %Basophils 0.3 % (0.0-1.0); %Eosinophils 2.2 % (0.0-10.0); %Lymphocytes 23.3 % (21.0-51.0); %Monocytes 9.4 % (0.0-10.0); %Neutrophils 64.9 % (42.0-75.0); Hemoglobin 10.1 g/dL (14.0-18.0); Mean Corpuscular HGB CONC 33.2 g/dL (32.0-36.0); Mean Corpuscular Hemoglobin 30.3 pg (27.0-31.0); Mean Corpuscular Volume 91.3 fl (78.0-98.0); Mean Platelet Volume 8.6 fL (7.4-10.4); Platelet Count 119 10x3/uL (130-400); RBC Distribution Width 13.8 % (11.5-14.5); Red Blood Cell (RBC) Count 3.34 mill/uL (4.70-6.10); White Blood Cell (WBC) Count 6.1 10x3/uL (4.8-10.8)
[2022-03-27 07:35] LABS: Anion Gap 11 mmol/L (10-20); BUN (Urea Nitrogen) 27 mg/dL (8.4-25.7); Calc. Creatinine Clearance 33 mL/min (70-130); Calcium 9.5 mg/dL (7.8-10.44); Carbon Dioxide 22 mmol/L (23-31); Chloride 109 mmol/L (98-107); Estimated GFR 36; Glucose 100 mg/dL (83-110); Magnesium 1.8 mg/dL (1.6-2.6); Potassium 5.5 mmol/L (3.5-5.1); Sodium 136 mmol/L (136-145)
[2022-03-27] MEDS: Amiodarone 200 MG TAB PO SCH (08:42)
[2022-03-27] MEDS: Famotidine 20 MG TAB PO SCH (08:42)
[2022-03-27] MEDS: Ferrous Sulfate 325 MG TAB PO SCH (08:42)
[2022-03-27] MEDS: Apixaban 2.5 MG TAB PO SCH ×2 (08:42→21:54)
[2022-03-27] MEDS: Carvedilol 6.25 MG TAB PO SCH ×2 (08:42→15:42)
[2022-03-27] MEDS: Sodium Bicarbonate Tab 325 MG TAB PO SCH ×3 (08:43→21:54)
[2022-03-27] MEDS ORDERED: LOKELMA 10 GM PACKET PO SCH (09:45)
[2022-03-27] MEDS ORDERED: Sodium Bicarbonate 50 MEQ in Sodium Chloride 0.45% 1,000 ML IV SCH (12:00)
[2022-03-27] MEDS ORDERED: Fluticasone Propionate Nasal Spray 16 gm Bottle NASAL SCH (16:00)
[2022-03-28 07:20] LABS: #Eosinphils 0.1 thou/uL (0.0-0.7); #Lymphocytes 1.7 thou/uL (1.20-3.40); #Monocytes 0.4 thou/uL (0.11-0.59); #Neutrophils 3.8 thou/uL (1.40-6.50); %Basophils 0.6 % (0.0-1.0); %Eosinophils 1.6 % (0.0-10.0); %Lymphocytes 27.8 % (21.0-51.0); %Monocytes 6.3 % (0.0-10.0); %Neutrophils 63.7 % (42.0-75.0); Hemoglobin 10.1 g/dL (14.0-18.0); Mean Corpuscular HGB CONC 33.4 g/dL (32.0-36.0); Mean Corpuscular Hemoglobin 30.2 pg (27.0-31.0); Mean Corpuscular Volume 90.4 fl (78.0-98.0); Mean Platelet Volume 9.3 fL (7.4-10.4); Platelet Count 101 10x3/uL (130-400); RBC Distribution Width 13.8 % (11.5-14.5); Red Blood Cell (RBC) Count 3.35 mill/uL (4.70-6.10)
[2022-03-28 07:37] LABS: Anion Gap 14 mmol/L (10-20); BUN (Urea Nitrogen) 30 mg/dL (8.4-25.7); Calc. Creatinine Clearance 32 mL/min (70-130); Calcium 9.3 mg/dL (7.8-10.44); Carbon Dioxide 18 mmol/L (23-31); Chloride 107 mmol/L (98-107); Estimated GFR 35; Glucose 105 mg/dL (83-110); Potassium 5.3 mmol/L (3.5-5.1); Sodium 134 mmol/L (136-145)
[2022-03-28] MEDS: Carvedilol 6.25 MG TAB PO SCH ×2 (08:20→14:18)
[2022-03-28] MEDS: Apixaban 2.5 MG TAB PO SCH ×2 (08:20→20:11)
[2022-03-28] MEDS: Famotidine 20 MG TAB PO SCH (08:20)
[2022-03-28] MEDS: Sodium Bicarbonate Tab 325 MG TAB PO SCH ×3 (08:20→20:11)
[2022-03-28] MEDS: Ferrous Sulfate 325 MG TAB PO SCH (08:20)
[2022-03-28] MEDS: Amiodarone 200 MG TAB PO SCH (08:21)
[2022-03-28] MEDS: Fluticasone Propionate Nasal Spray 16 gm Bottle NASAL SCH (08:21)
[2022-03-28] MEDS: Sodium Bicarbonate 50 MEQ in Sodium Chloride 0.45% 1,000 ML IV SCH ×2 (08:22→19:01)
[2022-03-28 11:17] LABS: % Free PSA Less than 20.0 % (.); Total PSA 0.1 ng/mL (0.0-4.0)
[2022-03-28 16:50] LABS: Anion Gap 10 mmol/L (10-20); BUN (Urea Nitrogen) 33 mg/dL (8.4-25.7); Calc. Creatinine Clearance 31 mL/min (70-130); Calcium 9.6 mg/dL (7.8-10.44); Carbon Dioxide 21 mmol/L (23-31); Chloride 106 mmol/L (98-107); Estimated GFR 33; Glucose 117 mg/dL (83-110); Potassium 5.4 mmol/L (3.5-5.1); Sodium 132 mmol/L (136-145)
[2022-03-28] MEDS: Acetaminophen 325 MG TAB PO PRN (18:22)
[2022-03-28] MEDS: Ondansetron ODT 4 MG TAB PO PRN (18:23)
[2022-03-28] MEDS ORDERED: LOKELMA 10 GM PACKET PO SCH (22:00)
[2022-03-28] MEDS: Simethicone Chewable 80 MG TAB PO PRN (22:11)
[2022-03-29] MEDS: Sodium Bicarbonate 50 MEQ in Sodium Chloride 0.45% 1,000 ML IV SCH ×2 (04:11→19:13)
[2022-03-29] MEDS: Ondansetron ODT 4 MG TAB PO PRN ×3 (04:12→19:57)
[2022-03-29 06:27] LABS: #Eosinphils 0.1 thou/uL (0.0-0.7); #Lymphocytes 1.1 thou/uL (1.20-3.40); #Monocytes 0.5 thou/uL (0.11-0.59); %Basophils 0.2 % (0.0-1.0); %Eosinophils 1.9 % (0.0-10.0); %Monocytes 8.3 % (0.0-10.0); %Neutrophils 70.5 % (42.0-75.0); Mean Corpuscular HGB CONC 33.1 g/dL (32.0-36.0); Mean Corpuscular Volume 90.8 fl (78.0-98.0); Mean Platelet Volume 8.4 fL (7.4-10.4); Platelet Count 103 10x3/uL (130-400); RBC Distribution Width 13.8 % (11.5-14.5); Red Blood Cell (RBC) Count 3.33 mill/uL (4.70-6.10); White Blood Cell (WBC) Count 5.7 10x3/uL (4.8-10.8)
[2022-03-29 06:47] LABS: Anion Gap 13 mmol/L (10-20); BUN (Urea Nitrogen) 31 mg/dL (8.4-25.7); Calc. Creatinine Clearance 36 mL/min (70-130); Calcium 9.3 mg/dL (7.8-10.44); Carbon Dioxide 22 mmol/L (23-31); Chloride 105 mmol/L (98-107); Estimated GFR 39; Glucose 119 mg/dL (83-110); Potassium 4.8 mmol/L (3.5-5.1); Sodium 135 mmol/L (136-145)
[2022-03-29] MEDS: Amiodarone 200 MG TAB PO SCH (08:47)
[2022-03-29] MEDS: Sodium Bicarbonate Tab 325 MG TAB PO SCH ×3 (08:47→21:12)
[2022-03-29] MEDS: Ferrous Sulfate 325 MG TAB PO SCH (08:47)
[2022-03-29] MEDS: Carvedilol 6.25 MG TAB PO SCH ×2 (08:47→15:57)
[2022-03-29] MEDS: Apixaban 2.5 MG TAB PO SCH ×2 (08:47→21:12)
[2022-03-29] MEDS: Famotidine 20 MG TAB PO SCH (08:47)
[2022-03-29] MEDS: Fluticasone Propionate Nasal Spray 16 gm Bottle NASAL SCH (08:48)
[2022-03-29] MEDS: Simethicone Chewable 80 MG TAB PO PRN ×2 (11:44→19:57)
[2022-03-30] MEDS: Sodium Bicarbonate 50 MEQ in Sodium Chloride 0.45% 1,000 ML IV SCH ×2 (05:01→15:08)
[2022-03-30 06:24] LABS: #Eosinphils 0.1 thou/uL (0.0-0.7); #Lymphocytes 1.4 thou/uL (1.20-3.40); #Monocytes 0.6 thou/uL (0.11-0.59); #Neutrophils 3.4 thou/uL (1.40-6.50); %Basophils 0.4 % (0.0-1.0); %Eosinophils 1.8 % (0.0-10.0); %Neutrophils 61.8 % (42.0-75.0); Hemoglobin 9.4 g/dL (14.0-18.0); Mean Corpuscular HGB CONC 33.6 g/dL (32.0-36.0); Mean Corpuscular Hemoglobin 30.5 pg (27.0-31.0); Mean Corpuscular Volume 90.6 fl (78.0-98.0); Mean Platelet Volume 8.4 fL (7.4-10.4); Platelet Count 94 10x3/uL (130-400); RBC Distribution Width 13.7 % (11.5-14.5); Red Blood Cell (RBC) Count 3.07 mill/uL (4.70-6.10); White Blood Cell (WBC) Count 5.6 10x3/uL (4.8-10.8)
[2022-03-30 07:17] LABS: Anion Gap 10 mmol/L (10-20); BUN (Urea Nitrogen) 31 mg/dL (8.4-25.7); Calc. Creatinine Clearance 37 mL/min (70-130); Carbon Dioxide 23 mmol/L (23-31); Chloride 105 mmol/L (98-107); Estimated GFR 41; Glucose 118 mg/dL (83-110); Potassium 4.7 mmol/L (3.5-5.1); Sodium 133 mmol/L (136-145)
[2022-03-30] MEDS: Amiodarone 200 MG TAB PO SCH (08:32)
[2022-03-30] MEDS: Ferrous Sulfate 325 MG TAB PO SCH (08:32)
[2022-03-30] MEDS: Sodium Bicarbonate Tab 325 MG TAB PO SCH ×3 (08:32→20:10)
[2022-03-30] MEDS: Apixaban 2.5 MG TAB PO SCH ×2 (08:33→20:10)
[2022-03-30] MEDS: Fluticasone Propionate Nasal Spray 16 gm Bottle NASAL SCH (08:33)
[2022-03-30] MEDS: Famotidine 20 MG TAB PO SCH (08:33)
[2022-03-30] MEDS: Carvedilol 6.25 MG TAB PO SCH ×2 (08:33→15:08)
[2022-03-30] MEDS ORDERED: Sodium Chloride 0.9% 500 ML IV SCH (08:45)
[2022-03-30] MEDS ORDERED: Senokot S 8.6-50 MG TAB PO PRN (12:00)
[2022-03-30] MEDS: Simethicone Chewable 80 MG TAB PO PRN (15:15)
[2022-03-30] MEDS: Ondansetron ODT 4 MG TAB PO PRN (15:15)
[2022-03-30] MEDS: Acetaminophen 325 MG TAB PO PRN (17:29)
[2022-03-30] MEDS ORDERED: Dicyclomine 10 MG CAP PO SCH (19:45)
[2022-03-31] MEDS: Sodium Bicarbonate 50 MEQ in Sodium Chloride 0.45% 1,000 ML IV SCH ×3 (02:40→22:21)
[2022-03-31 06:42] LABS: #Eosinphils 0.1 thou/uL (0.0-0.7); #Lymphocytes 1.2 thou/uL (1.20-3.40); #Monocytes 0.6 thou/uL (0.11-0.59); #Neutrophils 3.4 thou/uL (1.40-6.50); %Basophils 0.6 % (0.0-1.0); %Eosinophils 2.2 % (0.0-10.0); %Lymphocytes 22.7 % (21.0-51.0); %Monocytes 10.3 % (0.0-10.0); %Neutrophils 64.2 % (42.0-75.0); Hemoglobin 9.4 g/dL (14.0-18.0); Mean Corpuscular HGB CONC 33.6 g/dL (32.0-36.0); Mean Corpuscular Hemoglobin 30.3 pg (27.0-31.0); Mean Corpuscular Volume 90.2 fl (78.0-98.0); Mean Platelet Volume 8.8 fL (7.4-10.4); Platelet Count 96 10x3/uL (130-400); RBC Distribution Width 13.8 % (11.5-14.5); Red Blood Cell (RBC) Count 3.11 mill/uL (4.70-6.10); White Blood Cell (WBC) Count 5.3 10x3/uL (4.8-10.8)
[2022-03-31 06:57] LABS: Anion Gap 13 mmol/L (10-20); BUN (Urea Nitrogen) 30 mg/dL (8.4-25.7); Calc. Creatinine Clearance 38 mL/min (70-130); Carbon Dioxide 24 mmol/L (23-31); Chloride 106 mmol/L (98-107); Estimated GFR 43; Glucose 112 mg/dL (83-110); Potassium 4.5 mmol/L (3.5-5.1); Sodium 138 mmol/L (136-145)
[2022-03-31] MEDS: Ferrous Sulfate 325 MG TAB PO SCH (08:26)
[2022-03-31] MEDS: Famotidine 20 MG TAB PO SCH (08:26)
[2022-03-31] MEDS: Amiodarone 200 MG TAB PO SCH (08:26)
[2022-03-31] MEDS: Apixaban 2.5 MG TAB PO SCH ×2 (08:26→20:14)
[2022-03-31] MEDS: Sodium Bicarbonate Tab 325 MG TAB PO SCH ×3 (08:26→20:14)
[2022-03-31] MEDS: Carvedilol 6.25 MG TAB PO SCH ×2 (08:27→15:09)
[2022-03-31] MEDS: Fluticasone Propionate Nasal Spray 16 gm Bottle NASAL SCH (08:27)
[2022-03-31] MEDS: Simethicone Chewable 80 MG TAB PO PRN ×2 (11:53→20:14)
[2022-03-31] MEDS: Dicyclomine 20 MG TAB PO PRN (14:27)
[2022-03-31] MEDS ORDERED: Dicyclomine 20 MG TAB PO SCH (23:30)
[2022-04-01 05:38] LABS: #Eosinphils 0.1 thou/uL (0.0-0.7); #Lymphocytes 1.2 thou/uL (1.20-3.40); #Monocytes 0.6 thou/uL (0.11-0.59); #Neutrophils 3.1 thou/uL (1.40-6.50); %Basophils 0.8 % (0.0-1.0); %Eosinophils 2.3 % (0.0-10.0); %Lymphocytes 23.9 % (21.0-51.0); %Monocytes 11.3 % (0.0-10.0); %Neutrophils 61.7 % (42.0-75.0); Hemoglobin 9.4 g/dL (14.0-18.0); Mean Corpuscular HGB CONC 34.4 g/dL (32.0-36.0); Mean Corpuscular Volume 90.1 fl (78.0-98.0); Mean Platelet Volume 8.8 fL (7.4-10.4); Platelet Count 84 10x3/uL (130-400); RBC Distribution Width 13.8 % (11.5-14.5); Red Blood Cell (RBC) Count 3.05 mill/uL (4.70-6.10)
[2022-04-01 05:55] LABS: Anion Gap 12 mmol/L (10-20); BUN (Urea Nitrogen) 30 mg/dL (8.4-25.7); Calc. Creatinine Clearance 40 mL/min (70-130); Calcium 9.1 mg/dL (7.8-10.44); Carbon Dioxide 23 mmol/L (23-31); Chloride 104 mmol/L (98-107); Estimated GFR 45; Glucose 124 mg/dL (83-110); Potassium 4.4 mmol/L (3.5-5.1); Sodium 135 mmol/L (136-145)
[2022-04-01] MEDS: Sodium Bicarbonate 50 MEQ in Sodium Chloride 0.45% 1,000 ML IV SCH (08:34)
[2022-04-01] MEDS: Sodium Bicarbonate Tab 325 MG TAB PO SCH ×3 (08:45→19:58)
[2022-04-01] MEDS: Carvedilol 6.25 MG TAB PO SCH ×2 (08:45→15:06)
[2022-04-01] MEDS: Dicyclomine 20 MG TAB PO PRN (08:47)
[2022-04-01] MEDS: Apixaban 2.5 MG TAB PO SCH (08:47)
[2022-04-01] MEDS: Polyethylene Glycol 3350 17 GM Packet PO SCH (08:48)
[2022-04-01] MEDS: Fluticasone Propionate Nasal Spray 16 gm Bottle NASAL SCH (08:48)
[2022-04-01] MEDS: Ferrous Sulfate 325 MG TAB PO SCH (08:48)
[2022-04-01] MEDS: Famotidine 20 MG TAB PO SCH (08:48)
[2022-04-01] MEDS: Amiodarone 200 MG TAB PO SCH (08:48)
[2022-04-01 11:08] LABS: Iron 26 ug/dL (65-175); Iron Binding Capacity, Total 241 mcg/dL (261-462)
[2022-04-01] MEDS ORDERED: Mineral Oil ENEMA PR SCH (11:15)
[2022-04-01] MEDS: Simethicone Chewable 80 MG TAB PO PRN (15:52)
[2022-04-01] MEDS: Acetaminophen 325 MG TAB PO PRN (15:52)
[2022-04-01] MEDS: Ondansetron ODT 4 MG TAB PO PRN (15:52)
[2022-04-02] MEDS: Amiodarone 200 MG TAB PO SCH (08:35)
[2022-04-02] MEDS: Polyethylene Glycol 3350 17 GM Packet PO SCH (08:35)
[2022-04-02] MEDS: Famotidine 20 MG TAB PO SCH (08:35)
[2022-04-02] MEDS: Sodium Bicarbonate Tab 325 MG TAB PO SCH ×3 (08:36→19:41)
[2022-04-02] MEDS: Fluticasone Propionate Nasal Spray 16 gm Bottle NASAL SCH (08:36)
[2022-04-02] MEDS: Ferrous Sulfate 325 MG TAB PO SCH (08:36)
[2022-04-02] MEDS: Carvedilol 6.25 MG TAB PO SCH ×2 (08:36→16:32)
[2022-04-02 09:50] LABS: #Eosinphils 0.1 thou/uL (0.0-0.7); #Lymphocytes 1.6 thou/uL (1.20-3.40); #Monocytes 0.4 thou/uL (0.11-0.59); #Neutrophils 3.5 thou/uL (1.40-6.50); %Basophils 0.9 % (0.0-1.0); %Eosinophils 2.3 % (0.0-10.0); %Lymphocytes 28.1 % (21.0-51.0); %Monocytes 7.7 % (0.0-10.0); %Neutrophils 61.1 % (42.0-75.0); Hemoglobin 10.5 g/dL (14.0-18.0); Mean Corpuscular HGB CONC 32.7 g/dL (32.0-36.0); Mean Corpuscular Hemoglobin 29.9 pg (27.0-31.0); Mean Corpuscular Volume 91.5 fl (78.0-98.0); Mean Platelet Volume 8.2 fL (7.4-10.4); Platelet Count 113 10x3/uL (130-400); RBC Distribution Width 13.7 % (11.5-14.5); Red Blood Cell (RBC) Count 3.51 mill/uL (4.70-6.10); White Blood Cell (WBC) Count 5.7 10x3/uL (4.8-10.8)
[2022-04-02 09:56] LABS: Albumin 3.6 g/dL (3.4-4.8); Anion Gap 13 mmol/L (10-20); BUN (Urea Nitrogen) 30 mg/dL (8.4-25.7); BUN/Creatinine Ratio 17.34; Calc. Creatinine Clearance 34 mL/min (70-130); Calcium 9.9 mg/dL (7.8-10.44); Carbon Dioxide 24 mmol/L (23-31); Chloride 104 mmol/L (98-107); Estimated GFR 38; Glucose 185 mg/dL (83-110); Phosphorus 3.4 mg/dL (2.3-4.7); Potassium 4.4 mmol/L (3.5-5.1); Sodium 137 mmol/L (136-145)
[2022-04-02] MEDS ORDERED: Iron, Sodium Ferric Gluconate 250 MG in Sodium Chloride 0.9% 250 ML 250 ML IVPB SCH (14:00)
[2022-04-02] MEDS: Dicyclomine 20 MG TAB PO PRN (19:41)
[2022-04-03 07:21] LABS: Albumin 3.3 g/dL (3.4-4.8); Anion Gap 13 mmol/L (10-20); BUN (Urea Nitrogen) 24 mg/dL (8.4-25.7); BUN/Creatinine Ratio 15.89; Calc. Creatinine Clearance 39 mL/min (70-130); Calcium 9.4 mg/dL (7.8-10.44); Carbon Dioxide 22 mmol/L (23-31); Chloride 106 mmol/L (98-107); Estimated GFR 44; Glucose 106 mg/dL (83-110); Phosphorus 3.6 mg/dL (2.3-4.7); Potassium 4.7 mmol/L (3.5-5.1); Sodium 136 mmol/L (136-145)
[2022-04-03] MEDS: Polyethylene Glycol 3350 17 GM Packet PO SCH (08:29)
[2022-04-03] MEDS: Sodium Bicarbonate Tab 325 MG TAB PO SCH ×3 (08:30→20:38)
[2022-04-03] MEDS: Amiodarone 200 MG TAB PO SCH (08:30)
[2022-04-03] MEDS: Ferrous Sulfate 325 MG TAB PO SCH (08:30)
[2022-04-03] MEDS: Famotidine 20 MG TAB PO SCH (08:30)
[2022-04-03] MEDS: Carvedilol 6.25 MG TAB PO SCH ×2 (08:30→16:54)
[2022-04-03] MEDS: Fluticasone Propionate Nasal Spray 16 gm Bottle NASAL SCH (08:31)
[2022-04-03] MEDS ORDERED: GoLYTELY 4,000 ml Bottle PO SCH ×2 (12:00→19:25)
[2022-04-04] MEDS ORDERED: Ketamine 50 MG/ML (10ML VIAL) ONE (07:54)
[2022-04-04] MEDS ORDERED: PROPOFOL 200 MG/20 ML VIAL ONE (08:25)
[2022-04-04] MEDS ORDERED: PHENYLEPHRINE-NS 100 MCG/ML 10 ML SYRINGE ONE (08:25)
[2022-04-04] MEDS: Carvedilol 6.25 MG TAB PO SCH ×2 (09:49→15:05)
[2022-04-04] MEDS: Sodium Bicarbonate Tab 325 MG TAB PO SCH ×3 (09:50→20:34)
[2022-04-04] MEDS: Apixaban 2.5 MG TAB PO SCH ×2 (09:51→20:34)
[2022-04-04] MEDS: Amiodarone 200 MG TAB PO SCH (09:51)
[2022-04-04] MEDS: Famotidine 20 MG TAB PO SCH (09:51)
[2022-04-04] MEDS: Fluticasone Propionate Nasal Spray 16 gm Bottle NASAL SCH (09:51)
[2022-04-04] MEDS: Ferrous Sulfate 325 MG TAB PO SCH (09:51)
[2022-04-04] MEDS: Polyethylene Glycol 3350 17 GM Packet PO SCH (09:52)
[2022-04-04] MEDS: Dicyclomine 20 MG TAB PO PRN (12:00)
[2022-04-04] MEDS: Simethicone Chewable 80 MG TAB PO PRN (13:00)
[2022-04-04] MEDS: Acetaminophen 325 MG TAB PO PRN (13:01)
[2022-04-04] MEDS: Ondansetron ODT 4 MG TAB PO PRN (13:01)
[2022-04-04] MEDS ORDERED: Morphine 4 MG/ML VIAL SLOW IVP PRN (13:57)
[2022-04-04 17:13] LABS: #Eosinphils 0.1 thou/uL (0.0-0.7); #Monocytes 0.4 thou/uL (0.11-0.59); #Neutrophils 3.2 thou/uL (1.40-6.50); %Basophils 0.2 % (0.0-1.0); %Eosinophils 2.2 % (0.0-10.0); %Lymphocytes 20.5 % (21.0-51.0); %Monocytes 9.2 % (0.0-10.0); %Neutrophils 67.9 % (42.0-75.0); Hemoglobin 9.8 g/dL (14.0-18.0); Mean Corpuscular HGB CONC 33.2 g/dL (32.0-36.0); Mean Corpuscular Volume 90.2 fl (78.0-98.0); Mean Platelet Volume 8.7 fL (7.4-10.4); Platelet Count 96 10x3/uL (130-400); RBC Distribution Width 13.8 % (11.5-14.5); Red Blood Cell (RBC) Count 3.26 mill/uL (4.70-6.10); White Blood Cell (WBC) Count 4.7 10x3/uL (4.8-10.8)
[2022-04-04 17:31] LABS: Albumin 3.4 g/dL (3.4-4.8); Anion Gap 12 mmol/L (10-20); BUN (Urea Nitrogen) 21 mg/dL (8.4-25.7); BUN/Creatinine Ratio 15.33; Calc. Creatinine Clearance 43 mL/min (70-130); Calcium 9.4 mg/dL (7.8-10.44); Carbon Dioxide 25 mmol/L (23-31); Chloride 103 mmol/L (98-107); Estimated GFR 50; Glucose 117 mg/dL (83-110); Phosphorus 3.4 mg/dL (2.3-4.7); Sodium 136 mmol/L (136-145)
[2022-04-05 08:05] LABS: Anion Gap 12 mmol/L (10-20); BUN (Urea Nitrogen) 23 mg/dL (8.4-25.7); Calc. Creatinine Clearance 37 mL/min (70-130); Calcium 8.8 mg/dL (7.8-10.44); Carbon Dioxide 23 mmol/L (23-31); Chloride 106 mmol/L (98-107); Estimated GFR 42; Glucose 125 mg/dL (83-110); Potassium 4.1 mmol/L (3.5-5.1); Sodium 137 mmol/L (136-145)
[2022-04-05] MEDS ORDERED: Albumin 25% 25 GM/100 ML BOT IVPB SCH ×2 (08:30→12:30)
[2022-04-05] MEDS ORDERED: Empagliflozin 10 MG TAB PO SCH (09:00)
[2022-04-05] MEDS: Carvedilol 6.25 MG TAB PO SCH (09:37)
[2022-04-05] MEDS: Sodium Bicarbonate Tab 325 MG TAB PO SCH (09:38)
[2022-04-05] MEDS: Apixaban 2.5 MG TAB PO SCH (09:38)
[2022-04-05] MEDS: Ferrous Sulfate 325 MG TAB PO SCH (09:39)
[2022-04-05] MEDS: Amiodarone 200 MG TAB PO SCH (09:39)
[2022-04-05] MEDS: Famotidine 20 MG TAB PO SCH (09:41)
[2022-04-05] MEDS: Polyethylene Glycol 3350 17 GM Packet PO SCH (09:42)
[2022-04-05] MEDS: Fluticasone Propionate Nasal Spray 16 gm Bottle NASAL SCH (09:51)
[2022-04-05 19:48] VITALS: BP 118/64; TEMP 97.3
== END 2022-04-05 14:34 | disposition home health service (06) | DRG 683 ==
LOC: ERS 10:19 → ERHOLD 16:25 → T4-A 18:06 → OBSVTOIN 03-28 09:32
PROVIDERS: ADMIT Internal Medicine; ATTEND Internal Medicine
PROC: 0DBH8ZZ Excision of Cecum, Via Natural or Artificial Opening Endoscopic (ICD-10-PCS; principal; 2022-04-04)
PROC: 0DBL8ZZ Excision of Transverse Colon, Via Natural or Artificial Opening Endoscopic (ICD-10-PCS; 2022-04-04)
DX: N17.9 Acute kidney failure, unspecified (principal); Z66 Do not resuscitate; Z20.822 Contact with and (suspected) exposure to COVID-19; E87.20 Acidosis, unspecified; I50.22 Chronic systolic (congestive) heart failure; I13.0 Hypertensive heart and chronic kidney disease with heart failure and stage 1 through stage 4 chronic kidney disease, or unspecified chronic kidney disease; K58.9 Irritable bowel syndrome, unspecified; K57.30 Diverticulosis of large intestine without perforation or abscess without bleeding; K63.5 Polyp of colon; I48.91 Unspecified atrial fibrillation; E78.5 Hyperlipidemia, unspecified; E87.5 Hyperkalemia; I25.10 Atherosclerotic heart disease of native coronary artery without angina pectoris; D69.6 Thrombocytopenia, unspecified; E86.9 Volume depletion, unspecified; N18.30 Chronic kidney disease, stage 3 unspecified; D63.1 Anemia in chronic kidney disease; Z96.643 Presence of artificial hip joint, bilateral; N40.1 Benign prostatic hyperplasia with lower urinary tract symptoms; R33.8 Other retention of urine; I95.2 Hypotension due to drugs; T50.1X5A Adverse effect of loop [high-ceiling] diuretics, initial encounter; T46.5X5A Adverse effect of other antihypertensive drugs, initial encounter; Z85.46 Personal history of malignant neoplasm of prostate; Z79.899 Other long term (current) drug therapy; Z79.84 Long term (current) use of oral hypoglycemic drugs; Z79.01 Long term (current) use of anticoagulants; Z95.810 Presence of automatic (implantable) cardiac defibrillator; Z95.5 Presence of coronary angioplasty implant and graft; Z95.828 Presence of other vascular implants and grafts; Z82.49 Family history of ischemic heart disease and other diseases of the circulatory system; Z82.3 Family history of stroke
CPT/HCPCS: 36415; 36416; 51702; 71045; 74176; 80048; 80053; 80069; 81003; 82040; 82728; 83540; 83550; 83690; 83735; 84153; 84154; 84484; 85025; 87811; 88305; 93005; 96361; 96374; 96376; G0378; J2270; J2704; J2916; J7030; J7050; P9047; Q0162; U0003; U0005

== ENCOUNTER 2022-06-09 13:57 | Inpatient (IN) | payer MEDICARE ==
[2022-06-09 15:12] LABS: #Eosinphils 0.1 thou/uL (0.0-0.7); #Monocytes 0.5 thou/uL (0.11-0.59); #Neutrophils 3.2 thou/uL (1.40-6.50); %Basophils 0.7 % (0.0-1.0); %Eosinophils 1.2 % (0.0-10.0); %Lymphocytes 20.8 % (21.0-51.0); %Monocytes 11.2 % (0.0-10.0); %Neutrophils 66.2 % (42.0-75.0); Mean Corpuscular HGB CONC 34.2 g/dL (32.0-36.0); Mean Corpuscular Hemoglobin 30.9 pg (27.0-31.0); Mean Corpuscular Volume 90.2 fl (78.0-98.0); Mean Platelet Volume 10.8 fL (7.4-10.4); Platelet Count 62 10x3/uL (130-400); RBC Distribution Width 14.8 % (11.5-14.5); Red Blood Cell (RBC) Count 3.23 mill/uL (4.70-6.10); White Blood Cell (WBC) Count 4.8 10x3/uL (4.8-10.8)
[2022-06-09] MEDS ORDERED: Morphine 4 MG/ML VIAL ONE (15:35)
[2022-06-09] MEDS ORDERED: Acetaminophen 500 MG TAB ONE (15:35)
[2022-06-09 15:37] LABS: Albumin 3.7 g/dL (3.4-4.8); Calcium 9.2 mg/dL (7.8-10.44); Chloride 106 mmol/L (98-107); Potassium 3.9 mmol/L (3.5-5.1); Sodium 138 mmol/L (136-145)
[2022-06-09 15:38] LABS: Globulin 3.3 g/dL (2.4-3.5); Glucose 95 mg/dL (83-110)
[2022-06-09 15:39] LABS: Carbon Dioxide 21 mmol/L (23-31)
[2022-06-09 15:40] LABS: Bilirubin, Total 1.5 mg/dL (0.2-1.2)
[2022-06-09 15:41] LABS: Alkaline Phosphatase 129 U/L (40-110); Calc. Creatinine Clearance 0 mL/min (70-130); Estimated GFR 27
[2022-06-09 15:42] LABS: BUN (Urea Nitrogen) 39 mg/dL (8.4-25.7)
[2022-06-09 15:43] LABS: AST (SGOT) 23 U/L (5-34)
[2022-06-09 15:44] LABS: ALT (SGPT) 11 U/L (8-55)
[2022-06-09 15:45] LABS: Anion Gap 15 mmol/L (10-20)
[2022-06-09 15:53] LABS: CKMB 1.4 ng/mL (0-6.6)
[2022-06-09] MEDS ORDERED: Acetaminophen 325 MG TAB PO PRN (19:09)
[2022-06-09] MEDS ORDERED: Dextrose 50% Abboject 50 ML SYRINGE SLOW IVP PRN (19:15)
[2022-06-09] MEDS ORDERED: Dextrose 5% in Water 1,000 ML IV PRN (19:15)
[2022-06-09] MEDS ORDERED: HumaLOG 300 UNITS/3 ML VIAL SC PRN (19:15)
[2022-06-09] MEDS ORDERED: Famotidine 20 MG TAB PO SCH (21:00)
[2022-06-09 21:45] VITALS: BMI 25.8
[2022-06-10] MEDS: HYDROcodone/Acetaminophen 5/325 mg Tablet PO PRN ×4 (03:12→21:27)
[2022-06-10 04:32] LABS: #Eosinphils 0.1 thou/uL (0.0-0.7); #Lymphocytes 1.3 thou/uL (1.20-3.40); #Monocytes 0.4 thou/uL (0.11-0.59); #Neutrophils 2.7 thou/uL (1.40-6.50); %Basophils 0.8 % (0.0-1.0); %Eosinophils 1.9 % (0.0-10.0); %Lymphocytes 27.7 % (21.0-51.0); %Monocytes 9.8 % (0.0-10.0); %Neutrophils 59.9 % (42.0-75.0); Hemoglobin 10.1 g/dL (14.0-18.0); Mean Corpuscular HGB CONC 33.7 g/dL (32.0-36.0); Mean Corpuscular Hemoglobin 30.3 pg (27.0-31.0); Mean Corpuscular Volume 89.7 fl (78.0-98.0); Mean Platelet Volume 11.3 fL (7.4-10.4); Platelet Count 64 10x3/uL (130-400); RBC Distribution Width 14.8 % (11.5-14.5); Red Blood Cell (RBC) Count 3.33 mill/uL (4.70-6.10); White Blood Cell (WBC) Count 4.5 10x3/uL (4.8-10.8)
[2022-06-10 04:44] LABS: ALT (SGPT) 10 U/L (8-55); AST (SGOT) 23 U/L (5-34); Albumin 3.6 g/dL (3.4-4.8); Alkaline Phosphatase 125 U/L (40-110); Anion Gap 15 mmol/L (10-20); BUN (Urea Nitrogen) 39 mg/dL (8.4-25.7); Bilirubin, Total 1.2 mg/dL (0.2-1.2); Calc. Creatinine Clearance 27 mL/min (70-130); Calcium 9.3 mg/dL (7.8-10.44); Carbon Dioxide 21 mmol/L (23-31); Chloride 107 mmol/L (98-107); Estimated GFR 28; Glucose 75 mg/dL (83-110); Potassium 3.6 mmol/L (3.5-5.1); Protein, Total 6.6 g/dL (5.8-8.1); Sodium 139 mmol/L (136-145)
[2022-06-10 06:52] LABS: Bacteria/HPF None Seen HPF (None Seen); Bilirubin Negative (Negative); Blood, Urine Negative (Negative); Clarity Clear (Clear); Glucose, Urine (Dipstick) Normal (Negative); Ketone, Urine Negative (Negative); Leukocyte Negative Leu/uL (Negative); Nitrite Negative (Negative); Protein, Urine (Dipstick) 20 mg/dL (Neg-Trace); RBC/HPF None Seen HPF (0-3); Specific Gravity, Urine 1.012 (1.002-1.036); Squamous Epithelial 0-3 HPF (0-3); Urobilinogen Normal mg/dL (Less than 2); WBC/HPF 0-3 HPF (0-3)
[2022-06-10] MEDS ORDERED: Carvedilol 6.25 MG TAB PO SCH (08:00)
[2022-06-10] MEDS: Furosemide 20 MG/2 ML VIAL SLOW IVP SCH (10:06)
[2022-06-10] MEDS: Allopurinol 300 MG TAB PO SCH (10:07)
[2022-06-10] MEDS: Amiodarone 200 MG TAB PO SCH (10:07)
[2022-06-10] MEDS: Fluticasone Propionate Nasal Spray 16 gm Bottle NASAL SCH (11:38)
[2022-06-10] MEDS: Senokot S 8.6-50 MG TAB PO PRN (14:54)
[2022-06-10] MEDS: Carvedilol 6.25 MG TAB PO SCH (17:17)
[2022-06-10] MEDS: Famotidine 20 MG TAB PO SCH (21:17)
[2022-06-11] MEDS ORDERED: Ondansetron ODT 4 MG TAB PO PRN (04:43)
[2022-06-11] MEDS ORDERED: Ondansetron PF 4 MG/2 ML Vial IVP PRN (04:43)
[2022-06-11] MEDS: Polyethylene Glycol 3350 17 GM Packet PO SCH (09:38)
[2022-06-11] MEDS: Ferrous Sulfate 325 MG TAB PO SCH (09:38)
[2022-06-11] MEDS: Furosemide 20 MG/2 ML VIAL SLOW IVP SCH (09:38)
[2022-06-11] MEDS: Fluticasone Propionate Nasal Spray 16 gm Bottle NASAL SCH (09:38)
[2022-06-11] MEDS: Allopurinol 300 MG TAB PO SCH (09:38)
[2022-06-11] MEDS: Carvedilol 6.25 MG TAB PO SCH ×2 (09:38→16:34)
[2022-06-11] MEDS: Amiodarone 200 MG TAB PO SCH (09:38)
[2022-06-11] MEDS ORDERED: HYDROcodone/Acetaminophen 7.5/325 mg Tablet PO PRN (11:02)
[2022-06-11] MEDS ORDERED: Lidocaine 4% Patch TD SCH (12:00)
[2022-06-11] MEDS ORDERED: Furosemide 20 MG/2 ML VIAL SLOW IVP SCH (14:00)
[2022-06-11] MEDS: Senokot S 8.6-50 MG TAB PO PRN (21:04)
[2022-06-11] MEDS: Famotidine 20 MG TAB PO SCH (21:05)
[2022-06-12] MEDS: Transdermal Patch Removal TOP SCH (00:50)
[2022-06-12] MEDS: HYDROcodone/Acetaminophen 5/325 mg Tablet PO PRN ×2 (01:51→20:48)
[2022-06-12 05:09] LABS: Hemoglobin 10.5 g/dL (14.0-18.0); Mean Corpuscular HGB CONC 34.5 g/dL (32.0-36.0); Mean Corpuscular Hemoglobin 31.1 pg (27.0-31.0); Mean Platelet Volume 11.9 fL (7.4-10.4); Platelet Count 57 10x3/uL (130-400); RBC Distribution Width 14.9 % (11.5-14.5); Red Blood Cell (RBC) Count 3.37 mill/uL (4.70-6.10); White Blood Cell (WBC) Count 4.7 10x3/uL (4.8-10.8)
[2022-06-12 05:13] LABS: Anion Gap 15 mmol/L (10-20); BUN (Urea Nitrogen) 38 mg/dL (8.4-25.7); Calc. Creatinine Clearance 30 mL/min (70-130); Calcium 9.3 mg/dL (7.8-10.44); Carbon Dioxide 20 mmol/L (23-31); Chloride 105 mmol/L (98-107); Estimated GFR 32; Glucose 106 mg/dL (83-110); Potassium 4.4 mmol/L (3.5-5.1); Sodium 136 mmol/L (136-145)
[2022-06-12] MEDS: Ferrous Sulfate 325 MG TAB PO SCH (07:32)
[2022-06-12] MEDS: Carvedilol 6.25 MG TAB PO SCH ×2 (07:32→15:32)
[2022-06-12] MEDS: Amiodarone 200 MG TAB PO SCH (08:59)
[2022-06-12] MEDS: Polyethylene Glycol 3350 17 GM Packet PO SCH (09:00)
[2022-06-12] MEDS: Allopurinol 300 MG TAB PO SCH (09:00)
[2022-06-12] MEDS ORDERED: Furosemide 40 MG/4 ML VIAL SLOW IVP SCH (09:00)
[2022-06-12] MEDS: Fluticasone Propionate Nasal Spray 16 gm Bottle NASAL SCH (09:05)
[2022-06-12] MEDS: Lidocaine 4% Patch TD SCH (12:16)
[2022-06-12] MEDS ORDERED: Sodium Chloride 0.9% 250 ML IV SCH (16:00)
[2022-06-13] MEDS: Transdermal Patch Removal TOP SCH ×2 (01:02→23:24)
[2022-06-13 05:18] LABS: Hemoglobin 10.1 g/dL (14.0-18.0); Mean Corpuscular HGB CONC 34.1 g/dL (32.0-36.0); Mean Corpuscular Hemoglobin 30.6 pg (27.0-31.0); Mean Corpuscular Volume 89.8 fl (78.0-98.0); White Blood Cell (WBC) Count 4.5 10x3/uL (4.8-10.8)
[2022-06-13 05:27] LABS: Anion Gap 15 mmol/L (10-20); BUN (Urea Nitrogen) 40 mg/dL (8.4-25.7); Calc. Creatinine Clearance 29 mL/min (70-130); Carbon Dioxide 21 mmol/L (23-31); Chloride 104 mmol/L (98-107); Estimated GFR 30; Glucose 108 mg/dL (83-110); Potassium 4.7 mmol/L (3.5-5.1); Sodium 135 mmol/L (136-145)
[2022-06-13 05:28] LABS: ALT (SGPT) 10 U/L (8-55); AST (SGOT) 23 U/L (5-34); Albumin 3.3 g/dL (3.4-4.8); Alkaline Phosphatase 129 U/L (40-110); Bilirubin, Total 1.2 mg/dL (0.2-1.2); Calcium 9.3 mg/dL (7.8-10.44); Protein, Total 6.3 g/dL (5.8-8.1)
[2022-06-13 05:50] LABS: #Lymphocytes 1.3 thou/uL (1.20-3.40); #Monocytes 0.6 thou/uL (0.11-0.59); #Neutrophils 2.6 thou/uL (1.40-6.50); %Basophils 0.3 % (0.0-1.0); %Eosinophils 0.8 % (0.0-10.0); %Lymphocytes 28.1 % (21.0-51.0); %Monocytes 13.1 % (0.0-10.0); %Neutrophils 57.7 % (42.0-75.0); MDiff Complete? YES; Mean Platelet Volume 12.2 fL (7.4-10.4); Platelet Count 58 10x3/uL (130-400); Platelet Morphology Comment Appears Decreased; RBC Distribution Width 14.8 % (11.5-14.5); Target Cells SLIGHT = 2-5 cells (100X) (0-1/hpf)
[2022-06-13] MEDS: Allopurinol 300 MG TAB PO SCH (09:21)
[2022-06-13] MEDS: Ferrous Sulfate 325 MG TAB PO SCH (09:21)
[2022-06-13] MEDS: Amiodarone 200 MG TAB PO SCH (09:21)
[2022-06-13] MEDS: Polyethylene Glycol 3350 17 GM Packet PO SCH (09:22)
[2022-06-13] MEDS: Carvedilol 6.25 MG TAB PO SCH ×2 (09:22→16:15)
[2022-06-13] MEDS: Fluticasone Propionate Nasal Spray 16 gm Bottle NASAL SCH (09:22)
[2022-06-13] MEDS: Lidocaine 4% Patch TD SCH (11:00)
[2022-06-13] MEDS ORDERED: Bisacodyl 10 MG SUPP PR PRN (12:00)
[2022-06-13] MEDS ORDERED: Fleet Saline Enema 133 ML BOT PR SCH (12:00)
[2022-06-14] MEDS: Carvedilol 6.25 MG TAB PO SCH (10:55)
[2022-06-14] MEDS: Polyethylene Glycol 3350 17 GM Packet PO SCH (10:56)
[2022-06-14] MEDS: Ferrous Sulfate 325 MG TAB PO SCH (10:56)
[2022-06-14] MEDS: Amiodarone 200 MG TAB PO SCH (10:56)
[2022-06-14] MEDS: Fluticasone Propionate Nasal Spray 16 gm Bottle NASAL SCH (10:56)
[2022-06-14] MEDS: Allopurinol 300 MG TAB PO SCH (10:56)
[2022-06-14 12:34] VITALS: TEMP 98.3
[2022-06-14] MEDS: Lidocaine 4% Patch TD SCH (12:34)
[2022-06-14 17:21] VITALS: BP 123/73
== END 2022-06-14 15:33 | DRG 280 ==
LOC: ERS 13:57 → ERHOLD 17:30 → 2NO 21:34 → OBSVTOIN 06-10 13:39
PROVIDERS: ADMIT Family Medicine; ATTEND Internal Medicine
DX: I11.0 Hypertensive heart disease with heart failure (principal); I21.A1 Myocardial infarction type 2; I50.43 Acute on chronic combined systolic (congestive) and diastolic (congestive) heart failure; D69.3 Immune thrombocytopenic purpura; N17.9 Acute kidney failure, unspecified; I25.10 Atherosclerotic heart disease of native coronary artery without angina pectoris; E11.65 Type 2 diabetes mellitus with hyperglycemia; M10.9 Gout, unspecified; D69.6 Thrombocytopenia, unspecified; D63.1 Anemia in chronic kidney disease; E11.22 Type 2 diabetes mellitus with diabetic chronic kidney disease; Z66 Do not resuscitate; M45.9 Ankylosing spondylitis of unspecified sites in spine; R33.9 Retention of urine, unspecified; N18.31 Chronic kidney disease, stage 3a; I48.0 Paroxysmal atrial fibrillation; K59.00 Constipation, unspecified; I34.0 Nonrheumatic mitral (valve) insufficiency; E78.5 Hyperlipidemia, unspecified; Z95.0 Presence of cardiac pacemaker; Z95.5 Presence of coronary angioplasty implant and graft; Z79.01 Long term (current) use of anticoagulants; Z79.899 Other long term (current) drug therapy; Z98.890 Other specified postprocedural states
CPT/HCPCS: 36415; 36416; 71045; 71046; 71250; 72131; 80048; 80053; 81001; 82553; 83880; 84145; 84484; 85025; 85027; 93005; 93306; 93970; 96374; 96375; G0378; J1940; J2270; J7030